=== PATIENT | female | born 1940 | race Caucasian/White ===

== ENCOUNTER 2016-05-05 11:34 | Outpatient (CLI) | payer MEDICARE, OTHER | END 2016-05-05 11:35 | disposition home or self-care (01) | DX: E55.9 Vitamin D deficiency, unspecified (principal) ==

== ENCOUNTER 2016-07-13 10:00 | Outpatient (CLI) | payer MEDICARE, OTHER | END 2016-07-13 10:01 | disposition home or self-care (01) | DX: N39.0 Urinary tract infection, site not specified (principal) ==

== ENCOUNTER 2016-07-26 08:15 | Outpatient (CLI) | payer MEDICARE, OTHER | END 2016-07-26 08:16 | disposition home or self-care (01) | DX: E78.5 Hyperlipidemia, unspecified (principal); E55.9 Vitamin D deficiency, unspecified ==

== ENCOUNTER 2017-01-04 16:29 | Outpatient (CLI) | payer MEDICARE, OTHER ==
--- NOTE | 2017-01-05 10:02 | XRAY Report ---
THREE-VIEW LEFT ANKLE: 01/04/2017 CLINICAL INDICATION: Repetitive strain injury. FINDINGS: AP, lateral, oblique views of the left ankle demonstrate no evidence of fracture or disloc ation. Plantar calcaneal spurring is present. No joint effusion is seen. IMPRESSION: PLANTAR CALCANEAL SPURRING. NO EVIDENCE OF FRACTURE. JOB #: [id number] EXT JOB #:[id number]
== END 2017-01-04 16:30 | disposition home or self-care (01) ==
LOC: DI 16:29
PROVIDERS: ATTEND Family Medicine
DX: M77.32 Calcaneal spur, left foot (principal)

== ENCOUNTER 2017-02-01 11:34 | Outpatient (CLI) | payer MEDICARE, OTHER ==
--- NOTE | 2017-02-02 12:39 | Mammography Report ---
DIGITAL SCREENING MAMMOGRAM: 02/01/2017 CLINICAL INDICATION: A 76-year-old with personal history of left breast cancer status post mastectom y for screening. TECHNIQUE: Right CC and MLO projections were obtained. COMPARISON: 12/2015, 03/2014, 03/2013, 03/2012, 03/2011, 03/2010 FINDINGS: The right breast demonstrates scattered fibroglandular densities. Intramammary lymph node s are stable. Punctate, typically benign calcifications are present. No suspicious masses, clustere d microcalcifications, or regions of architectural distortion are identified. IMPRESSION: BENIGN FINDINGS. RECOMMENDATION: Routine annual screening unless otherwise clinically indicated. BIRADS CATEGORY 2 - BENIGN FINDINGS. STANDARD QUALIFYING STATEMENTS 1. This examination was reviewed with the aid of Computer-Aided Detection (CAD). 2. A negative or benign imaging report should not delay biopsy if clinically suspicious findings are present. Consider surgical consultation if warranted. More than 5% of cancers are not identified by i maging. 3. Dense breasts may obscure an underlying neoplasm. JOB #: [id number] EXT JOB #:[id number]
== END 2017-02-01 11:35 | disposition home or self-care (01) ==
LOC: DI.S 11:34
PROVIDERS: ATTEND Physician Assistant Medical
DX: Z12.31 Encounter for screening mammogram for malignant neoplasm of breast (principal); Z85.3 Personal history of malignant neoplasm of breast; Z90.12 Acquired absence of left breast and nipple

== ENCOUNTER 2017-04-06 14:54 | Outpatient (CLI) | payer MEDICARE, OTHER ==
--- NOTE | 2017-04-06 19:36 | XRAY Report ---
LEFT KNEE: 04/06/2017 COMPARISON: Left knee 09/29/2015. INDICATION: Knee pain. TECHNIQUE: Three views of the left knee. FINDINGS: There are moderate tricompartmental degenerative changes with moderate joint space narrowing overall. Alignment appears anatomic. No acute bone findings are seen. IMPRESSION: MODERATE TRICOMPARTMENTAL OSTEOARTHRITIS. NO INTERVAL CHANGE. JOB #: [id number] EXT JOB #: [id number] [facility]
== END 2017-04-06 14:55 | disposition home or self-care (01) ==
LOC: DI.S 14:54
PROVIDERS: ATTEND Physician Assistant Medical
DX: M17.12 Unilateral primary osteoarthritis, left knee (principal)

== ENCOUNTER 2017-05-16 08:21 | Outpatient (CLI) | payer MEDICARE, OTHER ==
[2017-05-16 11:45] LABS: BASOPHILS # (AUTO) 0.1 10^3/uL (0.0-0.1); EOSINOPHILS # (AUTO) 0.2 10^3/uL (0.0-0.7); EOSINOPHILS % (AUTO) 2.5 %; LYMPHOCYTES # (AUTO) 1.4 10^3/uL (1.5-3.5); LYMPHOCYTES % (AUTO) 20.6 %; MEAN CORPUSCULAR HEMOGLOBIN 31.4 pg (27.0-31.0); MEAN CORPUSCULAR HGB CONC 32.3 g/dL (32.0-36.0); MEAN CORPUSCULAR VOLUME 97.2 fL (81.0-99.0); MEAN PLATELET VOLUME 8.8 fL (7.9-10.8); MONOCYTES # (AUTO) 0.6 10^3/uL (0.0-1.0); MONOCYTES % (AUTO) 8.6 %; NEUTROPHILS # (AUTO) 4.6 10^3/uL (1.5-6.6); NEUTROPHILS % (AUTO) 67.3 %; PLT - PLATELET COUNT 217 10^3/uL (130-450); RED BLOOD COUNT 4.47 10^6/uL (4.20-5.40); WHITE BLOOD COUNT 6.9 x10^3/uL (4.8-10.8)
[2017-05-16 12:05] LABS: ALBUMIN/GLOBULIN RATIO 1.3 (1.0-2.2); ALKALINE PHOSPHATASE 57 IU/L (42-121); ALT ALANINE AMINOTRANSFERASE 15 IU/L (10-60); AST ASPARTATE AMINOTRANSFERASE 20 IU/L (10-42); BILIRUBIN,TOTAL 0.6 mg/dL (0.2-1.0); BUN - BLOOD UREA NITROGEN 17 mg/dL (6-20); CALCIUM 9.2 mg/dL (8.5-10.3); CARBON DIOXIDE - CO2 25 mmol/L (21-32); CHLORIDE 109 mmol/L (101-111); CHOL/HDL RATIO 4.3 (<4.4); CHOLESTEROL 206 mg/dL; CREATININE 0.9 mg/dL (0.4-1.0); GFR - MDRD 60 (>89); GLUCOSE 92 mg/dL (70-100); HDL CHOLESTEROL 48 mg/dL; LDL CHOLESTEROL,CALCULATED 124 mg/dL; LDL/HDL RATIO 2.6 (<4.4); SODIUM 140 mmol/L (135-145); TOTAL PROTEIN 7.2 g/dL (6.7-8.2); VLDL CHOLESTEROL 34 mg/dL
[2017-05-16 12:07] LABS: CRP - C-REACTIVE PROTEIN < 1.0 mg/dL (0-1.0)
[2017-05-16 12:13] LABS: THYROID STIMULATING HORMONE 4.18 uIU/mL (0.34-5.60)
[2017-05-16 12:22] LABS: FOLATE 11.87 ng/mL (5.90 - >24.8)
== END 2017-05-16 08:22 | disposition home or self-care (01) ==
LOC: LAB.F 08:21
PROVIDERS: ATTEND Physician Assistant Medical
DX: E78.5 Hyperlipidemia, unspecified (principal); R41.3 Other amnesia; M25.50 Pain in unspecified joint; Z51.81 Encounter for therapeutic drug level monitoring; Z79.899 Other long term (current) drug therapy
CPT/HCPCS: 36415; 80053; 80061; 82306; 82607; 82746; 83721; 84443; 85025; 85651; 86140

== ENCOUNTER 2017-09-07 10:48 | Outpatient (CLI) | payer MEDICARE, OTHER ==
[2017-09-07 18:13] LABS: ALBUMIN 3.8 g/dL (3.2-5.5); ALBUMIN/GLOBULIN RATIO 1.3 (1.0-2.2); BILIRUBIN,TOTAL 0.8 mg/dL (0.2-1.0); CALCIUM 9.1 mg/dL (8.5-10.3); CREATININE 0.8 mg/dL (0.4-1.0); TOTAL PROTEIN 6.7 g/dL (6.7-8.2)
== END 2017-09-07 10:49 | disposition home or self-care (01) ==
LOC: LAB.F 10:48
PROVIDERS: ATTEND Physician Assistant Medical
DX: R42 Dizziness and giddiness (principal); M25.50 Pain in unspecified joint
CPT/HCPCS: 36415; 80053

== ENCOUNTER 2018-02-27 10:39 | Outpatient (CLI) | payer MEDICARE, OTHER ==
--- NOTE | 2018-02-28 11:20 | Mammography Report ---
Reason: ROUTINE MAMMOGRAM Procedure Date: 02/27/2018 Accession Number: [id number] / [id number] Procedure: MGS - Screening Mammo Dig Bilat CPT Code: FULL RESULT: EXAM: Screening Mammo Dig Bilat DATE: 02/27/2018 10:57 AM CLINICAL HISTORY: 77-year-old female with left breast cancer status post left breast mastectomy and radiation therapy TECHNIQUE: Right CC and MLO views were obtained. COMPARISON: 02/01/2017, 01/19/2016, 04/14/2014. FINDINGS: The breast demonstrates diffuse fatty replacement. A stable kidney been shaped nodule in the posterior lateral right breast demonstrates the typically benign appearance of an intramammary lymph node. No suspicious masses, clustered microcalcifications, or regions of architectural distortion are identified. IMPRESSION: Benign findings RECOMMENDATION: Routine annual screening unless otherwise clinically indicated. BIRADS CATEGORY 2: Benign findings STANDARD QUALIFYING STATEMENTS: 1. This examination was reviewed with the aid of Computer-Aided Detection (CAD). 2. A negative or benign imaging report should not delay biopsy if clinically suspicious findings are present. Consider surgical consultation if warrented. More than 5% of cancers are not identified by imaging. 3. Dense breasts may obscure an underlying neoplasm. 4. This examination was reviewed without the aid of 3D breast imaging (tomosynthesis).
== END 2018-02-27 10:40 | disposition home or self-care (01) ==
LOC: DI.S 10:39
DX: Z12.31 Encounter for screening mammogram for malignant neoplasm of breast (principal); Z85.3 Personal history of malignant neoplasm of breast

== ENCOUNTER 2018-03-08 07:39 | Outpatient (CLI) | payer MEDICARE, OTHER ==
[2018-03-08 12:39] LABS: ALBUMIN 4.1 g/dL (3.2-5.5); ALBUMIN/GLOBULIN RATIO 1.4 (1.0-2.2); ALKALINE PHOSPHATASE 64 IU/L (42-121); ALT ALANINE AMINOTRANSFERASE 17 IU/L (10-60); AST ASPARTATE AMINOTRANSFERASE 19 IU/L (10-42); BILIRUBIN,TOTAL 0.7 mg/dL (0.2-1.0); BUN - BLOOD UREA NITROGEN 27 mg/dL (6-20); CALCIUM 9.1 mg/dL (8.5-10.3); CARBON DIOXIDE - CO2 24 mmol/L (21-32); CHLORIDE 108 mmol/L (101-111); CHOL/HDL RATIO 4.4 (<4.4); CHOLESTEROL 180 mg/dL; CREATININE 0.8 mg/dL (0.4-1.0); GFR - MDRD 69 (>89); GLUCOSE 94 mg/dL (70-100); HDL CHOLESTEROL 41 mg/dL; LDL CHOLESTEROL,CALCULATED 124 mg/dL; SODIUM 138 mmol/L (135-145); TOTAL PROTEIN 7.1 g/dL (6.7-8.2); VLDL CHOLESTEROL 15 mg/dL
== END 2018-03-08 07:40 | disposition home or self-care (01) ==
LOC: LAB.F 07:39
PROVIDERS: ATTEND Physician Assistant Medical
DX: E78.5 Hyperlipidemia, unspecified (principal)
CPT/HCPCS: 36415; 80053; 80061; 83721

== ENCOUNTER 2020-11-06 13:53 | Emergency (ER) | payer MEDICARE, OTHER ==
[2020-11-06 14:11] VITALS: BP 118/76
[2020-11-06] MEDS ORDERED: HYDROcod/ACETAM 5/325 MG TABLET PO STA (14:25)
--- NOTE | 2020-11-06 14:27 | ED Physician Documentation ---
History of Present Illness - Stated complaint Stated Complaint: GLF - Chief complaint Chief Complaint: Trauma Ch/Bk - History obtained from History obtained from: Patient (She fell last night, she fell forward but her only pain is in the right posterior lower ribs. It is severe despite taking Tylenol and ibuprofen. No other injuries.) Review of Systems Constitutional: denies: Fever, Chills Eyes: reports: Reviewed and negative Ears: reports: Reviewed and negative PD PAST MEDICAL HISTORY - Present Medications Home Medications: Ambulatory Orders Medication Instructions Recorded Confirmed HYDROcod/ACETAM 5/325 [[place] 5/325] 1 - 2 tab PO Q6H PRN #30 tablet 11/06/20 - Allergies Allergies/Adverse Reactions: Allergies Allergy/AdvReac Type Severity Reaction Status Date / Time No Known Drug Allergies Allergy Verified 11/06/20 14:11 PD ED PE NORMAL - Vitals Vital signs reviewed: Yes - General General: Alert and oriented X 3, No acute distress - HEENT HEENT: PERRL, EOMI - Neck Neck: Supple, no meningeal sign, No bony TTP - Cardiac Cardiac: RRR, No murmur - Respiratory Respiratory: No respiratory distress, Clear bilaterally, Other (There is a bruise around rib 10 on the right side of the posterior thorax with underlying tenderness near that rib. No midline spinal tenderness) - Abdomen Abdomen: Non tender - Neuro Neuro: Alert and oriented X 3, Normal speech Results - Vitals Vitals: Vital Signs - 24 hr 11/06/20 14:06 Temperature 36.5 C Heart Rate 62 Respiratory 16 Rate Blood Pressure 118/76 O2 Saturation 96 Oxygen O2 Source Room air - Rads (name of study) Ribs and chest x-ray Radiology: EMP read contemporaneously (Right posterior 10th and 11th rib fractures without complication) Departure - Departure Disposition: 01 Home, Self Care Clinical Impression: Rib fractures Qualifiers: Encounter type: initial encounter Fracture type: closed Laterality: right Qualified Code(s): S22.41XA - Multiple fractures of ribs, right side, initial encounter for closed fracture Condition: Good Record reviewed to determine appropriate education?: Yes Instructions: ED Fx Rib Prescriptions: HYDROcod/ACETAM 5/325 [[place] 5/325] 1 - 2 tab PO Q6H PRN #30 tablet PRN Reason: Pain Comments: Prescription sent electronically to [facility] in [place]. I am prescribing a short course of narcotic pain medication for you. These are potentially dangerous and addictive medications that should be used carefully. These medications may constipate you. Take an ljxg-equ-nzintga stool softener (docusate) twice daily with plenty of water while taking these medications. If you go 24 hours without a bowel movement, take aeun-hzm-krntlbd miralax, per package instructions. Do not drink or drive while taking these medications. If you received narcotic or sedating medications while in the emergency department, do not drive for 24 hours. Store this medication in a safe, secure place and out of reach of children. It is a violation of federal law to give or sell this medication to another person or to use in a manner other than prescribed. The ED will not refill narcotic prescriptions, including prescriptions lost or stolen. To dispose of unwanted medications: 1. [facility] at [address] in [place] has a medication drop box. They accept prescription medications (in pill form) Sunday through Sunday 9:00 a.m. to 5:00 p.m. 2. The [facility] accepts prescription medications (in pill form only) for disposal year round. Call for more information. 3. Contact the [facility] for the next [facility] sponsored prescription drug collection event. , [phone], or [phone]; Note that many narcotic pain relievers also contain Tylenol/acetaminophen. Please ensure that your total dose of acetaminophen from all sources does not exceed 3 g (3000 mg) per day. Note to HIM Please copy chart to Dr. Demario Grant MD ([facility] Fax:
--- NOTE | 2020-11-06 14:56 | XRAY Report ---
PROCEDURE: Ribs w/PA Chest RT INDICATIONS: R post low rib inj TECHNIQUE: 4 views of the right ribs were acquired, along with a single view chest. COMPARISON: None FINDINGS: Surgical changes and devices: None. Bones and chest wall: Mildly displaced fractures of the right posterior lateral 10th and 11th ribs.. No suspicious bony lesions. Overlying soft tissues appear unremarkable. Lungs and pleura: No pleural effusions or pneumothorax. Lungs appear clear. Mediastinum: Mediastinal contours appear normal. Heart size is normal. IMPRESSION: 1. Right 10th and 11th rib fractures. Reviewed by: Jared Mederos MD on 11/06/2020 2:55 PM PDT Approved by: Jared Mederos MD on 11/06/2020 2:55 PM PDT Station ID: [id number]
[2020-11-06] MEDS ORDERED: HYDROcod/ACET 5/325 Prepack 4 PO STA ×2 (15:12→15:18)
== END 2020-11-06 15:23 | disposition home or self-care (01) ==
LOC: ED 13:53
DX: S22.41XA Multiple fractures of ribs, right side, initial encounter for closed fracture (principal); W01.198A Fall on same level from slipping, tripping and stumbling with subsequent striking against other object, initial encounter; Y92.007 Garden or yard of unspecified non-institutional (private) residence as the place of occurrence of the external cause
CPT/HCPCS: 71101; 99283; 99284; A9270

== ENCOUNTER 2020-12-02 12:03 | Outpatient (CLI) | payer MEDICARE, OTHER ==
[2020-12-02 15:25] LABS: CHOL/HDL RATIO 3.1 (<4.4); CHOLESTEROL 151 mg/dL; HDL CHOLESTEROL 49 mg/dL; LDL CHOLESTEROL,CALCULATED 81 mg/dL; LDL/HDL RATIO 1.7 (<4.4); TRIGLYCERIDES 104 mg/dL; VLDL CHOLESTEROL 21 mg/dL
== END 2020-12-02 12:04 | disposition home or self-care (01) ==
LOC: LAB.S 12:03
PROVIDERS: ATTEND Family Medicine Sports Medicine
DX: E78.00 Pure hypercholesterolemia, unspecified (principal); F01.50 Vascular dementia, unspecified severity, without behavioral disturbance, psychotic disturbance, mood disturbance, and anxiety
CPT/HCPCS: 36415; 80061; 83721

== ENCOUNTER 2020-12-29 19:30 | Outpatient (CLI) | payer MEDICARE, OTHER | END 2020-12-29 19:31 | disposition EMS.NT | LOC: EMS 19:30 | DX: M25.512 Pain in left shoulder (principal) ==

== ENCOUNTER 2021-03-03 08:00 | Outpatient (CLI) | payer MEDICARE, OTHER | END 2021-03-03 23:59 | disposition home or self-care (01) | LOC: LAB 08:00 | PROVIDERS: ATTEND Physician Assistant | DX: Z20.822 Contact with and (suspected) exposure to COVID-19 (principal) ==